=== PATIENT | female | born 1960 | race Caucasian/White ===

== ENCOUNTER 2021-06-29 13:28 | Emergency (ER) | payer MEDICARE, MEDICAID, SELFPAY ==
[2021-06-29 13:35] VITALS: BP 137/68; PULSE 77; RESP 16; TEMP 37; O2SAT 99
--- NOTE | 2021-06-29 13:45 | ED.ALLEREA ---
HPI - Allergic Reaction General Chief complaint: Skin/Abscess/Foreign Body Stated complaint: face swelling Time Seen by Provider: 06/29/21 13:46 Source: patient Mode of arrival: ambulatory Limitations: no limitations Related Data Allergies Allergy/AdvReac Type Severity Reaction Status Date / Time No Known Allergies Allergy Unverified 07/04/15 09:28
--- NOTE | 2021-06-29 13:54 | ED.EAR ---
HPI - Ear Problem General Chief complaint: Skin/Abscess/Foreign Body Stated complaint: face swelling Time Seen by Provider: 06/29/21 13:54 Source: patient Mode of arrival: ambulatory Limitations: no limitations History of Present Illness HPI Narrative: 61-year-old woman comes in today complaining of left ear pain and left-sided facial swelling that started approximately 1 week ago. She states that she is not having pain in her right ear canal. Pain is such that she cannot put her hearing aids in her ears. She has had no fever, nausea, vomiting, difficulty swallowing, difficulty breathing or chest pain or neck pain. She is also complaining of vaginal itching which has been present for the last 2 weeks. She denies prior antibiotics. She attributes her symptoms to her diabetes. She states she has been taking Cipro for last 5 days for her symptoms. MD Complaint: ear pain Location: bilateral Duration: constant Severity: severe Relieving factors: nothing Exacerbating factors: nothing Discharge from ear: Reports no Associated symptoms ear: external ear tenderness and ear swelling Related Data Home Medications Medication Instructions Recorded Confirmed Lantus U-100 Insulin 40 units SUBCUT HS 06/29/21 06/29/21 benzonatate 100 mg PO DAILY 06/29/21 06/29/21 ciprofloxacin HCl 500 mg PO BID 06/29/21 06/29/21 sertraline 50 mg PO DAILY 06/29/21 06/29/21 Allergies Allergy/AdvReac Type Severity Reaction Status Date / Time No Known Allergies Allergy Unverified 07/04/15 09:28 Review of Systems Review of Systems: All systems reviewed & are unremarkable except as noted in HPI and below Constitutional: Constitutional: Denies chills and Denies fever(s) Eyes: Eyes: Denies change in vision and Denies photophobia ENT: Reports as per HPI, Denies dysphagia, Denies nasal congestion and Denies sore throat Cardiovascular: Cardiovascular: Denies chest pain and Denies radiating jaw, neck or arm pain Respiratory: Respiratory: Reports cough, Denies dyspnea and Denies wheezing Gastrointestinal: Gastrointestinal: Denies abdominal pain, Denies nausea and Denies vomiting Genitourinary: Genitourinary: Denies nocturia, Reports dysuria, Denies flank pain and Denies urinary incontinence Comments: Vaginal itching Musculoskeletal: Musculoskeletal: Denies arthralgias and Denies joint swelling Integumentary/Breasts: Skin/Breast: Reports pruritus (Genital), Denies erythema and Denies rash Neurologic: Denies vertigo, Denies dizziness, Denies syncope, Denies numbness and Denies weakness Hematologic/Lymphatic: Hematologic/Lymphatic: Denies easy bleeding and Denies easy bruising Allergic/Immunologic: Allergic/Immunologic: Denies lip swelling, Denies throat swelling and Denies tongue swelling PMFSH Past Medical History Medical History (Updated 06/29/21 @ 14:14 by Micky Lange MD) Hypertension Type 2 diabetes mellitus Surgical History Surgical History (Updated 06/29/21 @ 14:14 by Micky Lange MD) History of ear surgery X7 History of hysterectomy Social History Social History (Updated 06/29/21 @ 14:14 by Micky Lange MD) Smoking status: Current every day smoker Alcohol intake: never Substance use: never Exam Const: General: healthy appearing and alert Orientation/consciousness: patient oriented x3 Other: Mild acute distress. HENMT: Head: normal to inspection Mouth: Yes moist mucous membranes Throat: posterior oropharynx normal Other: Patient has left EAC tenderness and what appears to be a purulent effusion behind the tympanic membrane. She has tenderness over the mastoid without swelling or bogginess as well as tenderness over the zygoma, parotid, and jaw angle. There is no erythema. Right EAC is nontender and the tympanic membrane as well of effusion or bulging. Neck: Neck: normal visual inspection and no lymphadenopathy Resp: Effort & Inspection: normal respiratory effort and not labored Auscultat
[2021-06-29 14:10] LABS: Appearance Urine Clear (Clear); Bilirubin Urine Negative (Negative); Color Urine Light Yellow (Yellow); Glucose Urine UA 3+ (Negative); Ketones Urine Negative (Negative); Leukocyte Esterase Ur Trace (Negative); Nitrate Urine Negative (Negative); Protein Urine Negative (Negative); Urobilinogen Urine 0.2 mg/dL (0.2-1.0); pH Urine 5.5 (5.0-8.0)
[2021-06-29 14:13] VITALS: BP 137/68; PULSE 77; RESP 16; TEMP 37; O2SAT 98
[2021-06-29 14:13] LABS: Add Urine Microscopic? YES; Bacteria Urine Trace /hpf; Blood Urine Trace-Intact (Negative); RBC Urine 0-2 /hpf (0-2); Squamous Epithelial Cell Urine Rare /hpf (Few); WBC Urine 0-3 /hpf (0-3)
== END 2021-06-29 14:17 | disposition home or self-care (01) ==
PROVIDERS: Emergency Provider Emergency Medicine; PCP Physician Assistant
DX: H70.92 Unspecified mastoiditis, left ear (principal); N76.0 Acute vaginitis
CPT/HCPCS: 81001; 99283

== ENCOUNTER → 2021-11-24 00:54 | Outpatient (CLI) | payer OTHER, SELFPAY ==
[2021-11-24 15:16] LABS: SARS-CoV-2 RNA PCR Negative
== END ==
PROVIDERS: PCP Physician Assistant; Visit Provider Urology
DX: Z01.812 Encounter for preprocedural laboratory examination (principal); Z20.822 Contact with and (suspected) exposure to COVID-19
CPT/HCPCS: C9803; U0003; U0005

== ENCOUNTER 2021-11-24 09:02 | Outpatient (CLI) | payer OTHER, SELFPAY ==
[2021-11-24 10:03] LABS: Anion Gap 10 mmol/L (8-16); Blood Urea Nitrogen 8 mg/dL (7-17); Calcium 9.8 mg/dL (8.4-10.2); Carbon Dioxide 28 mmol/L (22-30); Chloride 96 mmol/L (98-107); Estimated Glomerular Filt Rate > 60; Glucose 357 mg/dL (65-110); Potassium 3.3 mmol/L (3.4-5.0); Sodium 134 mmol/L (137-145)
== END 2021-11-24 09:03 | disposition home or self-care (01) ==
PROVIDERS: Anesthesiology; PCP Physician Assistant; Visit Provider Urology
DX: N39.3 Stress incontinence (female) (male) (principal); E11.9 Type 2 diabetes mellitus without complications
CPT/HCPCS: 36415; 80048; 87077; 87086; 87186; C9803; U0003; U0005

== ENCOUNTER 2022-03-02 13:36 | Emergency (ER) | payer MEDICARE, SELFPAY ==
--- NOTE | ~2022-03-02 | XR_ITS ---
EXAMINATION: XR chest 1V portable DATE: 03/02/2022 14:34 INDICATION: Cough. TECHNIQUE: A single frontal view of the chest was obtained. COMPARISON: Chest single view 01/10/2019, CT abdomen and pelvis 03/06/2019 FINDINGS: There is mild atelectasis in the lower lung zones. No pleural effusion or pneumothorax. The heart size is normal. IMPRESSION: 1. Mild atelectasis in the lower lung zones. Reviewed, dictated and finalized at location B.
[2022-03-02 13:45] VITALS: BP 137/74; PULSE 75; RESP 20; TEMP 36.2; O2SAT 99
--- NOTE | 2022-03-02 14:01 | ED.URI ---
HPI - URI/Sore Throat General Chief Complaint: Upper Respiratory Infection Stated Complaint: LYMPH NODE INFECTION Time Seen by Provider: 03/02/22 14:01 Source: patient History of Present Illness HPI Narrative: 62-year-old female, smoker with hypertension, diabetes mellitus, multiple ear surgeries presents to the ER -- bilateral upper neck pain / tender upper cervical lymph nodes. pain on chewing. No ear discharge -- cough with mucoid sputum MD elicited complaint: cough Onset (ago): week(s) ( started 1 week ago) Consistency: constant Severity: moderate Description of mucous: clear Exacerbating factors: nothing Relieving factors: nothing Associated symptoms: denies other symptoms and ear pain Treatments prior to arrival: none Related Data Home Medications Medication Instructions Recorded Confirmed Lantus U-100 Insulin 40 units SUBCUT HS 06/29/21 03/02/22 sertraline 50 mg PO DAILY 06/29/21 03/02/22 metformin 1,000 mg PO DAILY 11/23/21 03/02/22 oxybutynin chloride 10 mg PO DAILY 11/23/21 03/02/22 Allergies Allergy/AdvReac Type Severity Reaction Status Date / Time No Known Allergies Allergy Unverified 11/23/21 08:22 Review of Systems Review of Systems: All systems reviewed & are unremarkable except as noted in HPI and below Constitutional: Constitutional: Reports as per HPI and Reports no additional constitutional complaints Eyes: Eyes: Reports as per HPI and Reports no additional eye complaints ENT: Reports Normal hearing present ( bilateral decreased here), Reports otalgia and Reports neck pain Cardiovascular: Cardiovascular: Reports as per HPI and Reports no additional cardiovascular complaints Respiratory: Respiratory: Reports as per HPI, Reports no additional respiratory complaints, Reports cough and Reports excessive phlegm production Gastrointestinal: Gastrointestinal: Reports as per HPI and Reports no additional gastrointestinal complaints Genitourinary: Genitourinary: Reports no additional female genitourinary complaints, Reports as per HPI and Reports nocturia Musculoskeletal: Musculoskeletal: Reports no additional musculoskeletal complaints and Reports as per HPI Integumentary/Breasts: Skin/Breast: Reports system reviewed and no additional complaints, except as docu and Reports as per HPI Neurologic: Reports system reviewed and no additional complaints, except as documented and Reports as per HPI Psychiatric: Psychiatric: Reports no additional psychiatric complaints and Reports as per HPI Endocrine: Endocrine: Reports no additional endocrine complaints and Reports as per HPI Hematologic/Lymphatic: Hematologic/Lymphatic: Reports no additional hematologic/lymphatic complaints and Reports as per HPI Allergic/Immunologic: Allergic/Immunologic: Reports no additional allergic/immunologic complaints and Reports as per HPI [facility] Past Medical History Medical History Hypertension Type 2 diabetes mellitus Surgical History Surgical History History of ear surgery X7 History of hysterectomy Social History Social History Smoking packs per day: 1.5 Smoking cigarettes per day: 30.0 Years smoked: 50 Smoking pack-years: 75.00 Smoking status: Current every day smoker Tobacco type: cigarettes Alcohol intake: never Substance use: never Substance use type: does not use Spiritual care concerns: No Exam Const: General: cooperative and healthy appearing HENMT: Head: normal to inspection, No palpable skull fracture present, normocephalic and atraumatic Ears: hearing grossly normal bilaterally (bilaterally decreased breath sounds. B/L otitis externa. B/L TM is red) and hearing grossly impaired General nose exam: Normal external nose present, Normal nares present and Normal nasal mucous membranes and turbinates present Fa
[2022-03-02 14:26] LABS: Basophils Absolute Auto 0.08 K/mm3 (0.00-0.10); Basophils Percent Auto 0.8 % (0.0-1.0); Eosinophils Absolute Auto 0.22 K/mm3 (0.02-0.50); Eosinophils Percent Auto 2.1 % (1.0-6.0); Hematocrit 43.6 % (35.0-49.0); Hemoglobin 14.1 g/dL (12.0-15.0); Immature Granulocyte Absolute 0.06 K/mm3 (0.00-0.00); Immature Granulocyte Percent A 0.6 % (0.0-0.0); Lymphocytes Percent Auto 22.9 % (18.0-42.0); Mean Corpuscular HGB Conc 32.3 g/dL (32.0-36.0); Mean Corpuscular Hemoglobin 27.2 pg (27.0-31.0); Mean Corpuscular Volume 84.2 fL (78.0-102.0); Mean Platelet Volume 10.2 fl (9.2-11.8); Monocytes Absolute Auto 0.45 K/mm3 (0.10-0.90); Monocytes Percent Auto 4.3 % (2.0-11.0); Neutrophils Absolute Auto 7.3 K/mm3 (1.7-7.2); Neutrophils Percent Auto 69.3 % (50.0-70.0); Platelet Count Result 236 K/mm3 (150-420); Red Blood Count 5.18 M/mm3 (4.20-5.40); Red Cell Distribution Width 13.8 % (11.6-14.4); White Blood Count 10.5 K/mm3 (4.8-10.8)
[2022-03-02 14:27] LABS: Appearance Urine Clear (Clear); Bilirubin Urine Negative (Negative); Color Urine Light Yellow (Yellow); Glucose Urine UA 2+ (Negative); Ketones Urine Negative (Negative); Leukocyte Esterase Ur Trace (Negative); Nitrate Urine Negative (Negative); Protein Urine Negative (Negative); Specific Grav Ur 1.025 (1.010-1.020); Urobilinogen Urine 0.2 mg/dL (0.2-1.0); pH Urine 5.5 (5.0-8.0)
[2022-03-02 14:32] LABS: Add Urine Microscopic? YES; Blood Urine Trace-Intact (Negative); RBC Urine 0-2 /hpf (0-2)
[2022-03-02 14:33] LABS: Bacteria Urine Trace /hpf; Squamous Epithelial Cell Urine Moderate /hpf (Few)
[2022-03-02 14:40] LABS: Alanine Aminotransferase 26 U/L (14-59); Albumin Level 3.5 g/dL (3.4-5.0); Alkaline Phosphatase 119 U/L (46-116); Anion Gap 7 mmol/L (8-16); Aspartate Amino Transferase 11 U/L (15-37); Bilirubin,Total 0.5 mg/dL (0.00-1.00); Blood Urea Nitrogen 8 mg/dL (7-18); Calcium 9.4 mg/dL (8.5-10.1); Carbon Dioxide 31 mmol/L (21-32); Chloride 98 mmol/L (98-108); Estimated CRCL calculation 81 ml/min; Estimated Glomerular Filt Rate > 60; Glucose 281 mg/dL (70-99); Osmolality Calculated 290 mOsm/kg (285-295); Potassium 3.9 mmol/L (3.5-5.1); Sodium 136 mmol/L (136-145); Total Protein 7.8 g/dL (6.4-8.2)
[2022-03-02 14:45] LABS: Lactic Acid Reflex 0.7 mmol/L (0.4-2.0)
[2022-03-02 15:19] VITALS: BP 147/76; PULSE 76; RESP 20; TEMP 36.6; O2SAT 97
== END 2022-03-02 15:24 | disposition home or self-care (01) ==
PROVIDERS: Emergency Provider Internal Medicine Critical Care Medicine; PCP Physician Assistant
DX: N30.90 Cystitis, unspecified without hematuria (principal); E11.65 Type 2 diabetes mellitus with hyperglycemia; H66.3X3 Other chronic suppurative otitis media, bilateral; I10 Essential (primary) hypertension
CPT/HCPCS: 36415; 71045; 80053; 81001; 83605; 85025; 99283

== ENCOUNTER 2023-02-13 16:47 | Emergency (ER) | payer MEDICARE, MEDICAID, SELFPAY ==
[2023-02-13 16:49] VITALS: BP 137/78; PULSE 74; RESP 18; TEMP 36.7; O2SAT 97
--- NOTE | 2023-02-13 17:01 | ED.NECK ---
HPI - Neck Pain/Injury General Chief Complaint: Neck Pain/Injury Stated Complaint: ear/jaw pain Source: patient and family (daughter) Mode of arrival: ambulatory Limitations: no limitations History of Present Illness HPI Narrative: 63 year old female is brought to the Emergency Department by daughter. Patient complains of nodule and pain to right submandibular /paracervical region. Patient has had for over a month. She has seen her Primary Care and CT scan was done. She states she does not know the results, but was told it was not cancer. She is supposed to have another scan and to see ENT. She states she does have some trouble swallowing sometimes. She has no teeth and has not seen dentist in a long time. She is also to see Pulmonary for her COPD. She complains of pain. States she does not have anything to take for pain. MD complaint: neck pain Onset (ago): month(s) Radiation: head (jaw) Severity: intermittent Duration: intermittent Relieving factors: none Exacerbating factors: other (palpation) Treatments prior to arrival: other (PCP evaluation, CT scan, further scan scheduled and ENT referral) Related Data Home Medications Medication Instructions Recorded Confirmed Lantus U-100 Insulin 40 units subcut HS DIABETES 06/29/21 02/13/23 sertraline 50 mg tablet 50 mg PO DAILY 06/29/21 02/13/23 metformin 500 mg tablet 1,000 mg PO DAILY 11/23/21 02/13/23 oxybutynin chloride 10 mg 10 mg PO DAILY 11/23/21 02/13/23 tablet,extended release 24 hr Allergies Allergy/AdvReac Type Severity Reaction Status Date / Time No Known Allergies Allergy Verified 02/13/23 17:03 Review of Systems Review of Systems: All systems reviewed & are unremarkable except as noted in HPI and below Constitutional: Constitutional: Reports as per HPI, Reports no additional constitutional complaints, Denies chills and Denies fever(s) Eyes: Eyes: Reports as per HPI and Reports no additional eye complaints ENT: Reports system reviewed and no additional complaints, except as documented, Reports as per HPI and Reports dysphagia Cardiovascular: Cardiovascular: Reports as per HPI, Reports no additional cardiovascular complaints and Denies chest pain Respiratory: Respiratory: Reports as per HPI, Reports no additional respiratory complaints, Denies cough and Denies dyspnea Gastrointestinal: Gastrointestinal: Reports as per HPI, Reports no additional gastrointestinal complaints, Denies diarrhea and Denies vomiting Genitourinary: Genitourinary: Reports no additional female genitourinary complaints Musculoskeletal: Musculoskeletal: Reports no additional musculoskeletal complaints Integumentary/Breasts: Skin/Breast: Reports system reviewed and no additional complaints, except as docu Neurologic: Reports system reviewed and no additional complaints, except as documented, Reports as per HPI and Denies headache(s) Psychiatric: Psychiatric: Reports no additional psychiatric complaints Endocrine: Endocrine: Reports no additional endocrine complaints Hematologic/Lymphatic: Hematologic/Lymphatic: Reports no additional hematologic/lymphatic complaints Allergic/Immunologic: Allergic/Immunologic: Reports no additional allergic/immunologic complaints PMFSH Past Medical History Medical History Hypertension Type 2 diabetes mellitus Surgical History Surgical History History of ear surgery X7 History of hysterectomy Social History Social History Smoking packs per day: 1.5 Smoking cigarettes per day: 30.0 Years smoked: 50 Smoking pack-years: 75.00 Smoking status: Current every day smoker Tobacco type: cigarettes Alcohol intake: never Substance use: never Substance use type: does not use Living arrangements: with family Spiritual care concerns: No Exam Const: Audi
[2023-02-13] MEDS: HYDROcodone/acetaminophen (*CRX) 10-325 MG TABLET 1 TAB PO (17:07)
--- NOTE | 2023-02-13 17:10 | PC.NURSE ---
Pt denies any injury, states she does have difficulty swallowing at times, is seeing a specialist about this complaint, pt has no difficulty breathing and is sitting in room in NAD.
== END 2023-02-13 17:33 | disposition home or self-care (01) ==
PROVIDERS: Emergency Provider Emergency Medicine; PCP Physician Assistant
DX: R22.0 Localized swelling, mass and lump, head (principal); J44.9 Chronic obstructive pulmonary disease, unspecified; I10 Essential (primary) hypertension; E11.9 Type 2 diabetes mellitus without complications; F17.210 Nicotine dependence, cigarettes, uncomplicated; Z79.4 Long term (current) use of insulin
CPT/HCPCS: 99283; A9270